=== PATIENT | male | born 1985 | race American Indian/Alaskan Native ===

== ENCOUNTER 2019-03-09 06:22 | Emergency (ER) | payer OTHER ==
[2019-03-09 06:52] VITALS: BP 115/59
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
--- NOTE | 2019-03-09 08:23 | XRay Report ---
PROCEDURE: XR FOOT 3+V LT TECHNIQUE: 3 nonweightbearing views left foot HISTORY: foot pain COMPARISONS: None FINDINGS: No gross malalignment or deformity. Joint spaces are grossly unremarkable. No periosteal reaction or fracture. IMPRESSION: No acute left foot finding. This document is electronically signed by Khalif Carson MD., March 09 2019 08:20:42 AM ET
== END 2019-03-09 08:43 | disposition home or self-care (01) ==
LOC: ED 06:22
DX: M79.672 Pain in left foot (principal); F12.10 Cannabis abuse, uncomplicated
CPT/HCPCS: 99283